=== PATIENT | male | born 2000 | race Caucasian/White ===

== ENCOUNTER 2020-06-12 23:00 | Emergency (ER) | payer OTHER ==
[~2020-06-12] VITALS: Ht 180.3 cm; Wt 61.2 kg
[~2020-06-12 23:00] MED LIST: PARAFON FORTE500 MG PO
[2020-06-13] MEDS ORDERED: AMOX-CLAV 875-1 EACH PO (01:04)
[2020-06-13] MEDS ORDERED: ORASEP SPRAY30 ML MM (01:04)
== END 2020-06-13 01:14 ==
LOC: ER 23:00
DX: J03.90 Acute tonsillitis, unspecified (principal)

== ENCOUNTER 2021-04-03 19:03 | Emergency (ER) | payer OTHER ==
[~2021-04-03] VITALS: Ht 180.3 cm; Wt 62.6 kg
[~2021-04-03 19:03] MED LIST changes: +AMOX-CLAV 875-1 EACH PO; +ORASEP SPRAY30 ML MM
[2021-04-03] MEDS ORDERED: PEPCID AC20 MG PO (22:43)
[2021-04-03] MEDS ORDERED: PROAIR RESPICL90 MCG IH (22:43)
[2021-04-03] MEDS ORDERED: ACID REDUCER20 M1 PO (22:43)
== END 2021-04-03 22:55 | disposition home or self-care (01) ==
LOC: ER 19:03
DX: R07.89 Other chest pain (principal); R12 Heartburn